=== PATIENT | male | born 1995 | race Caucasian/White ===

== ENCOUNTER 2016-05-17 11:19 | Emergency (ER) | payer MEDICAID, OTHER ==
[~2016-05-17] VITALS: Ht 170.2 cm; Wt 128.5 kg
[~2016-05-17 11:19] MED LIST: ALBU8.5H3
[2016-05-17 11:25] VITALS: Ht 170.2 cm; Wt 128.5 kg
--- NOTE | 2016-05-17 13:46 | ERD ---
ER Documentation Chief Complaint Date/Time DATE: 05/17/16 TIME: 13:44 Chief Complaint rt wrist pain x 1 day HPI Patient is a 21-year-old male who presents to the ED with right wrist pain 3 months. He states that at work he uses his hands a lot to lift and twist and states that his wrist has been hurting. He has increasing pain in the last 2 days. He has been using a wrap around his wrist which is helped minimally. He denies radiation of pain. He denies numbness or tingling. Denies pain in his elbow or shoulder. He has not taken any medication for his symptoms. He denies any new onset trauma. No other complaints. ROS All systems reviewed and are negative except as per history of present illness. Medications Home Meds Reported Medications Albuterol Sulfate* (Proair HFA*) 8.5 Gm Hfa.aer.ad 12/23/11 Allergies Allergies: Coded Allergies: No Known Allergy (Unverified , 06/21/12) PMhx/Soc History of Surgery: No Anesthesia Reaction: No Hx Respiratory Disorders: Yes (asthma) Hx Cardiac Disorders: No Hx Psychiatric Problems: No Hx Miscellaneous Medical Probl: No Hx Alcohol Use: No Hx Substance Use: No Hx Tobacco Use: No Physical Exam Vitals Vital Signs Date Time Temp Pulse Resp B/P Pulse Ox O2 Delivery O2 Flow Rate FiO2 05/17/16 11:25 97.9 72 16 133/71 99 Physical Exam GENERAL: Well-developed, well-nourished male. Appears in no acute distress. HEAD: Normocephalic, atraumatic. EYES: Pupils are equally reactive bilaterally. EOMs grossly intact. No conjunctival erythema. ENT: Moist mucous membranes. No uvula deviation. No kissing tonsils. No exudates. NECK: Supple. No lymphadenopathy or thyromegaly. No meningismus. negative kernig. negative brudinski. LUNG: Clear to auscultation bilaterally. No rhonchi, wheezing, rales or coarse breath sounds. HEART: Regular rate and rhythm. No murmurs, rubs or gallops. Extremities: Equal pulses bilaterally. No peripheral clubbing, cyanosis or edema. No unilateral leg swelling. positive jesus test. ORTHO: Range of motion intact. Pulses intact bilaterally. No swelling or ecchymosis or open wounds or laceration. No step-offs or deformities. tenderness to tendons on lateral aspect of right thumb. Radius, ulnar and median nerve intact. Sensation intact. No pain above or below wrist. NEUROLOGIC: Alert and oriented. Moving all four extremities. 5/5 strength in all extremities. Normal speech. Steady gait. SKIN: Normal color. Warm and dry. No rashes or lesions. Capillary refill < 2 seconds Procedures/MDM ER COURSE: I kept the patient and/or family informed of laboratory and diagnostic imaging results throughout the emergency room course. IMAGING STUDIES [place] [id number] Radiology Main Line: [phone] DIAGNOSTIC IMAGING REPORT Patient: DELIA SINGH : 1995 Age: 21 Sex: M MR #: [id number] DOS: 05/17/16 1238 Ordering MD: STEVE IZAGUIRRE PA-C Location: [facility] Room/Bed: PROCEDURE: XR Hand. CLINICAL INDICATION: Right hand pain. TECHNIQUE: Three views. Frontal, lateral, and oblique images of the right hand were obtained. COMPARISON: No prior studies are available for comparison. FINDINGS: There is no fracture or dislocation. The soft tissues are normal. Articular surfaces are intact. There is no lytic or blastic lesion. There is no radiopaque foreign body. IMPRESSION: 1. Unremarkable images of the right hand. RPTAT: QQ .Ede Eid MD, MD Date Time Electronically viewed and signed by .Ede Eid MD, on 05/17/2016 13:51 .R/ CC: STEVE IZAGUIRRE PA-C [place] [id number] Radiology Main Line: [phone] DIAGNOSTIC IMAGING REPORT Patient: DELIA SINGH : 1995 Age: 21 Sex: M MR #: [id number] DOS: 05/17/16 1238 Ordering MD: STEVE IZAGUIRRE PA-C Location: [facility] Room/Bed: PROCEDURE: XR Right Wrist. CLINICAL INDICATION: Right wrist pain. TECHNIQUE: Four views. Frontal, lateral, oblique, and scaphoid view. COMPARISON: No prior studies are available for comparison. FINDINGS: There is no fracture or dislocation. The soft tissues are normal. Articular surfaces are intact. There is no lytic or blastic lesion. There is no radiopaque foreign body. IMPRESSION: 1. Normal images of the right wrist. RPTAT: QQ .Ede Eid MD, MD Date Time Electronically viewed and signed by .Ede Eid MD, on 05/17/2016 13:51 .R/ CC: STEVE IZAGUIRRE PA-C MEDICAL DECISION MAKING: This is a 21-year-old male who presents with right wrist pain 3 months. Vital signs were reviewed. Patient is afebrile. Patient is not hypoxic. Patient likely has tendinitis of his wrist. Low suspicion for dislocation, fracture, septic joint, compartment syndrome, osteomyelitis, cellulitis, avascular necrosis, neurological injury, vascular injury, tendon laceration. Patient is neurovascularly intact post splint placement. DISCHARGE: At this time, patient is stable for discharge and outpatient management with no new complaints during the ER course. Patient was sent home with Velcro wrist splint, Naprosyn and a note for work advised patient to rest, use ice and heat as well as anti-inflammatories.. Patient will be discharged home with instructions to recheck for new or worsening symptoms such as fever, nausea, weakness, LOC and to follow up with primary care in the next 1-2 days. Patient was advised to return to the ER for any new or worsening symptoms. Plan was discussed and patient and/or family understands and agrees. Home instructions were given. Departure Diagnosis: Primary Impression: Pain in wrist Laterality: right Qualified Code: M25.531 - Right wrist pain Condition: Stable STEVE IZAGUIRRE PA-C May 17, 2016 13:46
--- NOTE | 2016-05-17 13:51 | RADRPT ---
PROCEDURE: XR Right Wrist. CLINICAL INDICATION: Right wrist pain. TECHNIQUE: Four views. Frontal, lateral, oblique, and scaphoid view. COMPARISON: No prior studies are available for comparison. FINDINGS: There is no fracture or dislocation. The soft tissues are normal. Articular surfaces are intact. There is no lytic or blastic lesion. There is no radiopaque foreign body. IMPRESSION: 1. Normal images of the right wrist. RPTAT: QQ .Ede Eid MD, MD Date Time Electronically viewed and signed by .Ede Eid MD, MD on 05/17/2016 13:51 .R/
--- NOTE | 2016-05-17 13:51 | RADRPT ---
PROCEDURE: XR Hand. CLINICAL INDICATION: Right hand pain. TECHNIQUE: Three views. Frontal, lateral, and oblique images of the right hand were obtained. COMPARISON: No prior studies are available for comparison. FINDINGS: There is no fracture or dislocation. The soft tissues are normal. Articular surfaces are intact. There is no lytic or blastic lesion. There is no radiopaque foreign body. IMPRESSION: 1. Unremarkable images of the right hand. RPTAT: QQ .Ede Eid MD, MD Date Time Electronically viewed and signed by .Ede Eid MD, MD on 05/17/2016 13:51 .R/
[2016-05-17] MEDS ORDERED: NAPR-260 PO (14:23)
== END 2016-05-17 15:31 | disposition home or self-care (01) ==
LOC: FTE 11:19
DX: S59.911A Unspecified injury of right forearm, initial encounter (principal); J45.909 Unspecified asthma, uncomplicated; X50.1XXA Overexertion from prolonged static or awkward postures, initial encounter; Y92.9 Unspecified place or not applicable
CPT/HCPCS: 29125; 73110; 73130; Z7502

== ENCOUNTER 2017-08-07 11:58 | Emergency (ER) | END 2017-08-07 13:52 | disposition home or self-care (01) ==

== ENCOUNTER 2017-08-10 23:12 | Emergency (ER) | END 2017-08-11 01:36 | disposition home or self-care (01) ==

== ENCOUNTER 2017-08-23 17:48 | Emergency (ER) | END 2017-08-23 19:31 | disposition home or self-care (01) ==

== ENCOUNTER 2017-12-07 00:02 | Emergency (ER) | END 2017-12-07 03:24 | disposition home or self-care (01) ==